=== PATIENT | male | born 1955 | race Caucasian/White ===

== ENCOUNTER 2025-02-16 12:32 | Outpatient (CLI) | payer MEDICARE, OTHER | END 2025-02-16 12:33 | disposition home or self-care (01) | LOC: CSHCP 12:32 | PROVIDERS: ATTEND Internal Medicine | DX: C90.00 Multiple myeloma not having achieved remission (principal); D70.8 Other neutropenia; Z79.899 Other long term (current) drug therapy; I51.7 Cardiomegaly; I08.0 Rheumatic disorders of both mitral and aortic valves | CPT/HCPCS: 93306; 94060; 94726; 94729; 94760 ==